=== PATIENT | female | born 1940 | race Caucasian/White ===

== ENCOUNTER → 2016-09-16 | Outpatient (CLI) | payer MEDICARE, OTHER ==
[~2016-09-16] MED LIST: ADVAIR 250/501 DISK IH; ASPIR-TRIN325 M1 PO; AVALIDE 150/1 TABLET PO; Arimidex PO; CELEXA20 MG PO; Cozaar PO; EFFEXOR75 MG PO; ENDOCET 5-3251 EACH PO; Evista PO; FOLIC ACID1 MG PO; GLUCOPHAGE500 MG PO; Keflex PO; LEVOXYL100 MCG PO; LIDOCAINE700 MG TD; LOSARTAN POTAS100 MG PO; NICOTINE PATCH1 EAC2 TD; PRAVACHOL40 MG PO; PRILOSEC20 MG PO; PROAIR HFA8.5 GM IH; Theragran W/Iron,MVI PO; VITAMIN B-1100 MG PO; VITAMIN B-12250 MCG PO; VITAMIN D2000 INTUN PO; Vicodin,Lortab 5/500 PO
== END | disposition home or self-care (01) ==
LOC: CDC 13:55
DX: I10 Essential (primary) hypertension (principal)
CPT/HCPCS: 93000

== ENCOUNTER → 2017-07-21 | Outpatient (CLI) | payer MEDICARE, OTHER | END | disposition home or self-care (01) | LOC: CDC 11:43 | DX: Z01.810 Encounter for preprocedural cardiovascular examination (principal); Z85.048 Personal history of other malignant neoplasm of rectum, rectosigmoid junction, and anus | CPT/HCPCS: 93000 ==

== ENCOUNTER → 2017-08-12 | Outpatient (CLI) | payer OTHER ==
[~2017-08-12] VITALS: Ht 157.5 cm; Wt 59.4 kg
== END | disposition home or self-care (01) ==
LOC: AMB 09:30
DX: Z08 Encounter for follow-up examination after completed treatment for malignant neoplasm (principal); Z85.048 Personal history of other malignant neoplasm of rectum, rectosigmoid junction, and anus; D12.3 Benign neoplasm of transverse colon; D12.2 Benign neoplasm of ascending colon; A63.0 Anogenital (venereal) warts; Z53.09 Procedure and treatment not carried out because of other contraindication; Z85.3 Personal history of malignant neoplasm of breast; Z80.3 Family history of malignant neoplasm of breast; Z80.41 Family history of malignant neoplasm of ovary; F17.200 Nicotine dependence, unspecified, uncomplicated; I10 Essential (primary) hypertension; K21.9 Gastro-esophageal reflux disease without esophagitis; E78.5 Hyperlipidemia, unspecified; E11.9 Type 2 diabetes mellitus without complications; J45.909 Unspecified asthma, uncomplicated; E03.9 Hypothyroidism, unspecified; M81.0 Age-related osteoporosis without current pathological fracture; Z90.11 Acquired absence of right breast and nipple; Z90.710 Acquired absence of both cervix and uterus; Z90.79 Acquired absence of other genital organ(s); Z90.722 Acquired absence of ovaries, bilateral
CPT/HCPCS: 88305; J2250

== ENCOUNTER 2017-09-23 05:39 | Day surgery (SDC) | payer OTHER ==
[~2017-09-23] VITALS: Ht 157.5 cm; Wt 59.5 kg
[~2017-09-23 05:39] MED LIST changes: +VITAMIN D32000 UNI1 PO
[2017-09-23 06:14] VITALS: BP 159/87
[2017-09-23] MEDS ORDERED: OXAYDO5 MG PO (08:28)
[2017-09-23 08:55] VITALS: BP 148/72
[2017-09-23 09:43] VITALS: BP 147/82
== END 2017-09-23 09:55 | disposition home or self-care (01) ==
LOC: SDC 05:39
PROVIDERS: Surgery
DX: K62.89 Other specified diseases of anus and rectum (principal); D23.5 Other benign neoplasm of skin of trunk; Z85.048 Personal history of other malignant neoplasm of rectum, rectosigmoid junction, and anus; Z85.3 Personal history of malignant neoplasm of breast; Z86.010 Personal history of colon polyps; K21.9 Gastro-esophageal reflux disease without esophagitis; E78.5 Hyperlipidemia, unspecified; I10 Essential (primary) hypertension; E11.9 Type 2 diabetes mellitus without complications; Z80.3 Family history of malignant neoplasm of breast; F17.200 Nicotine dependence, unspecified, uncomplicated
CPT/HCPCS: 82948; 87641; 88305; J1100; J1885; J2405; J3010; S0020; S0074

== ENCOUNTER 2017-10-30 22:08 | Inpatient (IN) | payer OTHER ==
[~2017-10-30] VITALS: Ht 154.9 cm; Wt 56.9 kg
[~2017-10-30 22:08] MED LIST changes: +LO-DOSE ASPIRIN81 M2 PO; +MICROZIDE12.5 M1 PO; +OXAYDO5 MG PO
[2017-10-31 06:13] VITALS: BP 111/72
[2017-10-31 15:00] VITALS: BP 123/84
[2017-10-31 20:57] VITALS: BP 118/68
[2017-11-01 00:26] VITALS: BP 91/52
[2017-11-01 03:49] VITALS: BP 95/56
[2017-11-01 07:12] LABS: MCH 28.2 PG (29.0-34.0); MCHC 32.4 G/DL (30.0-36.0); MCV 87.2 FL (83-99); PLATELET COUNT 182 K/uL (156-360); RBC DIS.WIDTH-SD 45.1 % (39-53); RED BLOOD COUNT 4.36 M/uL (3.80-5.20)
[2017-11-01 07:14] LABS: HEMOGLOBIN 12.3 G/DL (11.9-15.5)
[2017-11-01 08:26] LABS: CHLORIDE 102 MEQ/L (99-109); CREATININE 0.5 MG/DL (0.6-1.3); GFR ESTIMATE (CALCULATED) > 59 mL/min/; GLUCOSE 121 mg/dL (70-99); POTASSIUM 4.3 MEQ/L (3.7-5.4); SODIUM 136 MEQ/L (136-147); UREA NITROGEN (BUN) 9 mg/dL (9-23)
[2017-11-01 08:27] VITALS: BP 101/58
[2017-11-01 16:02] VITALS: BP 120/77
[2017-11-01 20:00] VITALS: BP 110/77
[2017-11-01 23:43] VITALS: BP 100/64
[2017-11-02 03:14] VITALS: BP 106/61
[2017-11-02 06:52] LABS: HEMATOCRIT 37.6 % (36.0-46.0); MCH 27.8 PG (29.0-34.0); MCHC 31.9 G/DL (30.0-36.0); MCV 87.2 FL (83-99); PLATELET COUNT 178 K/uL (156-360); RBC DIS.WIDTH-CV 13.9 % (11.8-14.6); RBC DIS.WIDTH-SD 44.9 % (39-53); RED BLOOD COUNT 4.31 M/uL (3.80-5.20); WHITE BLOOD COUNT 5.6 K/uL (4.1-10.2)
[2017-11-02 07:15] LABS: CHLORIDE 103 MEQ/L (99-109); CREATININE 0.5 MG/DL (0.6-1.3); GFR ESTIMATE (CALCULATED) > 59 mL/min/; GLUCOSE 94 mg/dL (70-99); POTASSIUM 4.2 MEQ/L (3.7-5.4); SODIUM 137 MEQ/L (136-147); UREA NITROGEN (BUN) 7 mg/dL (9-23)
[2017-11-02 07:25] VITALS: BP 116/78
[2017-11-02] MEDS ORDERED: OXAYDO5 MG PO (13:33)
== END 2017-11-02 14:51 | disposition home or self-care (01) | DRG 331 ==
LOC: ENRESERV 22:08 → 2SOUTH 10-31 05:37 → 5EAST 10-31 05:37 → 2SOUTH 10-31 08:47 → ENRESERV 10-31 13:58 → 2SOUTH 10-31 14:37 → 5EAST 10-31 14:50
PROVIDERS: Surgery
DX: D12.3 Benign neoplasm of transverse colon (principal); K66.0 Peritoneal adhesions (postprocedural) (postinfection); J44.9 Chronic obstructive pulmonary disease, unspecified; F17.210 Nicotine dependence, cigarettes, uncomplicated; Z60.2 Problems related to living alone; E03.9 Hypothyroidism, unspecified; E78.5 Hyperlipidemia, unspecified; M81.0 Age-related osteoporosis without current pathological fracture; F41.9 Anxiety disorder, unspecified; I10 Essential (primary) hypertension; K21.9 Gastro-esophageal reflux disease without esophagitis; K63.5 Polyp of colon; E55.9 Vitamin D deficiency, unspecified; Z91.048 Other nonmedicinal substance allergy status; Z85.038 Personal history of other malignant neoplasm of large intestine; Z85.3 Personal history of malignant neoplasm of breast; Z79.82 Long term (current) use of aspirin; Z86.73 Personal history of transient ischemic attack (TIA), and cerebral infarction without residual deficits; Z90.710 Acquired absence of both cervix and uterus; Z90.11 Acquired absence of right breast and nipple
CPT/HCPCS: 80048; 85027; 88307; 94799; J1100; J1170; J1644; J1885; J2001; J2405; J2710; J2795; J3475; J7120; J7643; S0074